=== PATIENT | female | born 1965 | race Hispanic/Latino ===

== ENCOUNTER 2022-05-26 07:35 | Outpatient (CLI) | payer OTHER | END 2022-05-26 07:36 | disposition home or self-care (01) | LOC: CSHULT 07:35 | PROVIDERS: ATTEND Family Medicine | DX: R74.8 Abnormal levels of other serum enzymes (principal) | CPT/HCPCS: 76700 ==

== ENCOUNTER 2023-04-29 13:04 | Emergency (ER) | payer OTHER ==
[2023-04-29] MEDS ORDERED: Ketorolac Tromethamine 30 MG/ML VIAL ONE (14:58)
[2023-04-29] MEDS ORDERED: Cyclobenzaprine 10 MG TAB ONE (15:03)
== END 2023-04-29 15:01 | disposition home or self-care (01) ==
LOC: CSHERS 13:04
DX: M75.22 Bicipital tendinitis, left shoulder (principal); E11.9 Type 2 diabetes mellitus without complications; I10 Essential (primary) hypertension
CPT/HCPCS: 93005; 96372; J1885